=== PATIENT | female | born 1990 | race African-American/Black ===

== ENCOUNTER 2019-08-04 00:07 | Emergency (ER) | payer BC ==
[~2019-08-04] VITALS: Ht 167.6 cm; Wt 82.6 kg
[2019-08-04] MEDS ORDERED: BACITRACIN ZINC 0.9GM TP ONE (01:38)
--- NOTE | 2019-08-04 01:50 | NUR ---
PT SHOWERED WITH ANTIBACT. SOAP PRIOR TO COMING TO ER..DRESSED ROAD RASH TO BILAT KNEES/CALVES WITH BACITRACIN, ADAPTIC,KERLIX,COBAN. PT TOLERATED WELL.
--- NOTE | 2019-08-04 02:17 | Diagnostic Imaging Report ---
X-ray right elbow 3 views HISTORY: Pain. Trauma COMPARISON: None available. FINDINGS: Bones: No acute displaced fracture. Osseous alignment is within normal limits. Joints: The joint spaces are well-maintained. Lifted anterior elbow fat pad. Soft tissues: The soft tissues appear unremarkable. IMPRESSION: Small elbow joint effusion without direct evidence of a fracture at the elbow, although a radiographically occult fracture is possible. Signed by: Tyrone Tinsley DO on 08/04/2019 2:12 AM
--- NOTE | 2019-08-04 03:56 | Diagnostic Imaging Report ---
EXAM: CT of the right elbow without contrast INDICATION: Fall, pain COMPARISON: Same day interval x-ray TECHNIQUE: Multidetector CT scanning of the site was performed. Coronal and sagittal multiplanar reformations were obtained. RADIATION DOSE: Total DLP: 69 mGy*cm Estimated effective dose: (DLP x 0.014 x size factor) mSv CTDIvol has been reviewed. It is below the limits set by the Radiation Protocol Committee (RPC). Dose modulation, iterative reconstruction, and/or weight based adjustment of the mA/kV was utilized to reduce the radiation dose to as low as reasonably achievable. FINDINGS: Bones: Nondisplaced coronoid process fracture. Joints: Moderate elbow joint effusion. Soft Tissues: Mild soft tissue swelling about the elbow IMPRESSION: Nondisplaced coronoid process fracture and moderate elbow joint effusion. Signed by: Tyrone Tinsley DO on 08/04/2019 3:53 AM
[2019-08-04] MEDS ORDERED: TYLENOL WITH C1 EACH PO (04:30)
[2019-08-04 04:42] VITALS: BP 111/68
== END 2019-08-04 04:42 | disposition home or self-care (01) ==
LOC: FSED 00:07
DX: S52.044A Nondisplaced fracture of coronoid process of right ulna, initial encounter for closed fracture (principal); S80.212A Abrasion, left knee, initial encounter; S80.211A Abrasion, right knee, initial encounter; S80.812A Abrasion, left lower leg, initial encounter; S80.811A Abrasion, right lower leg, initial encounter; V39.89XA Occupant (driver) (passenger) of three-wheeled motor vehicle injured in other specified transport accidents, initial encounter; Y92.488 Other paved roadways as the place of occurrence of the external cause
CPT/HCPCS: 99284

== ENCOUNTER → 2020-05-14 | Outpatient (CLI) | payer OTHER ==
[~2020-05-14] MED LIST: COVID-19 VACC, MRNA(MODERNA)/PF 100 MCG/0.5 ML VIAL IM ONE; TYLENOL WITH C1 EACH PO
== END ==
LOC: VACCPMC 16:00
DX: Z23 Encounter for immunization (principal); Z20.822 Contact with and (suspected) exposure to COVID-19

== ENCOUNTER → 2020-06-19 | Outpatient (CLI) | payer OTHER | END | DRG 951 | LOC: VACCPMC 11:12 | DX: Z23 Encounter for immunization (principal); Z20.822 Contact with and (suspected) exposure to COVID-19 | CPT/HCPCS: 0012A; 91301 ==